=== PATIENT | female | born 1965 | race Caucasian/White ===

== ENCOUNTER 2018-06-25 19:16 | Emergency (ER) | payer OTHER ==
[~2018-06-25] VITALS: Ht 157.5 cm; Wt 86.2 kg
[2018-06-25] MEDS ORDERED: BLOOD PRESSURE MED (19:31)
[2018-06-25] MEDS ORDERED: ONDANSETRON HCL4 M2 PO (21:01)
[2018-06-25] MEDS ORDERED: FLEXERIL PO (21:01)
[2018-06-25] MEDS ORDERED: LIDODERM1 EACH TRANSDERM (21:01)
[2018-06-25 21:32] VITALS: BP 124/66
== END 2018-06-25 21:36 | disposition home or self-care (01) ==
LOC: M.ERS 19:16
DX: M54.16 Radiculopathy, lumbar region (principal); I10 Essential (primary) hypertension

== ENCOUNTER 2019-02-23 10:26 | Emergency (ER) | payer OTHER ==
[~2019-02-23] VITALS: Ht 157.5 cm; Wt 73.5 kg
[~2019-02-23 10:26] MED LIST: BLOOD PRESSURE MED; FLEXERIL PO; LIDODERM1 EACH TRANSDERM; ONDANSETRON HCL4 M2 PO
[2019-02-23] MEDS ORDERED: PRILOSEC 10MG C10 MG PO (10:49)
[2019-02-23 12:07] LABS: ABSOLUTE BASOPHILS 0.1 thou/uL (0.0-0.2); ABSOLUTE MONOCYTES 0.5 thou/uL (0.0-1.2); ABSOLUTE NEUTROPHILS 2.9 thou/uL (1.6-8.1); EOSINOPHILS 0.7 %; HEMATOCRIT 43.9 % (37.0-47.0); LYMPHOCYTES 36.7 %; MCH 32.4 pg (26.0-34.0); MCHC 34.1 g/dL (28.0-37.0); MCV 95.2 fL (80.0-100.0); MONOCYTES 9.2 %; MPV 8.4 fl. (7.2-11.1); NUCLEATED RBCS 0 /100WBC; PLATELET COUNT* 203 thou/uL (150-400); POLYS 52.4 %; RBC 4.61 mil/uL (4.20-5.00); RDW-CV 13.1 % (10.5-14.5); WBC 5.5 thou/uL (4.0-11.0)
[2019-02-23 12:23] LABS: ALBUMIN 3.6 g/dL (3.4-5.0); CALCIUM 10.3 mg/dL (8.5-10.1); CREATININE 0.7 mg/dL (0.6-1.3); TOTAL BILIRUBIN 0.2 mg/dL (<0.1-1.0); TOTAL PROTEIN 6.7 g/dL (6.4-8.2)
[2019-02-23 12:27] LABS: URINE BILIRUBIN NEGATIVE (Negative); URINE BLOOD 1+ (Negative); URINE CLARITY CLEAR; URINE COLOR YELLOW; URINE GLUCOSE-RANDOM NEGATIVE (Negative); URINE KETONES NEGATIVE (Negative); URINE LEUKOCYTES-REFLEX NEGATIVE (Negative); URINE NITRITE-REFLEX NEGATIVE (Negative); URINE PROTEIN NEGATIVE (Negative); URINE UROBILINOGEN 0.2 E.U./dl (0.2-1.0)
[2019-02-23 12:42] LABS: SQUAMOUS 0-3 Few /LPF (0-3)
[2019-02-23 12:43] LABS: CASTS None Seen /LPF (None Seen); CRYSTALS None Seen /LPF (None Seen); MUCUS >6 Heavy strn/LPF (None Seen); URINE RBC 0-2 Rare /HPF (0-2); URINE WBC-REFLEX 0-5 Rare /HPF (0-5)
[2019-02-23] MEDS ORDERED: ZOFRAN ODT4 MG PO (13:37)
[2019-02-23] MEDS ORDERED: NORCO 5-325 TA1 EACH PO (13:37)
[2019-02-23 13:57] VITALS: BP 145/83
== END 2019-02-23 13:57 | disposition home or self-care (01) ==
LOC: M.ERS 10:26
PROVIDERS: Personal Emergency Response Attendant
DX: K80.20 Calculus of gallbladder without cholecystitis without obstruction (principal); I10 Essential (primary) hypertension; Z91.048 Other nonmedicinal substance allergy status

== ENCOUNTER 2021-01-16 20:45 | Emergency (ER) | payer OTHER ==
[~2021-01-16] VITALS: Ht 157.5 cm; Wt 77.1 kg
[~2021-01-16 20:45] MED LIST changes: +NORCO 5-325 TA1 EACH PO; +PRILOSEC 10MG C10 MG PO; +ZOFRAN ODT4 MG PO
[2021-01-16] MEDS ORDERED: TOPROL XL100 MG PO (21:19)
[2021-01-16] MEDS ORDERED: NORVASC 2.5 MG2.5 M1 (21:20)
[2021-01-16 21:37] LABS: ABSOLUTE BASOPHILS 0.1 thou/uL (0.0-0.2); ABSOLUTE EOSINOPHILS 0.1 thou/uL (0.0-0.7); ABSOLUTE LYMPHOCYTES 3.6 thou/uL (0.8-5.3); ABSOLUTE MONOCYTES 0.9 thou/uL (0.0-1.2); ABSOLUTE NEUTROPHILS 3.3 thou/uL (1.6-8.1); BASOPHILS 0.7 %; EOSINOPHILS 1.3 %; HEMATOCRIT 45.3 % (37.0-47.0); HEMOGLOBIN 15.3 gm/dL (12.0-15.0); MCH 31.5 pg (26.0-34.0); MCHC 33.7 g/dL (28.0-37.0); MCV 93.7 fL (80.0-100.0); MONOCYTES 11.4 %; MPV 8.2 fl. (7.2-11.1); NUCLEATED RBCS 0 /100WBC; PLATELET COUNT* 201 thou/uL (150-400); POLYS 41.6 %; RBC 4.84 mil/uL (4.20-5.00); RDW-CV 12.5 % (10.5-14.5)
[2021-01-16 21:51] LABS: CALCIUM 10.4 mg/dL (8.5-10.1); CREATININE 0.7 mg/dL (0.6-1.3); POTASSIUM 4.1 mmol/L (3.5-5.1)
[2021-01-16 21:56] LABS: ALBUMIN 3.9 g/dL (3.4-5.0); TOTAL BILIRUBIN 0.3 mg/dL (<0.1-1.0); TOTAL PROTEIN 6.7 g/dL (6.4-8.2)
[2021-01-17 00:31] VITALS: BP 121/76
--- NOTE | 2021-01-17 11:13 | EKG ---
[place] [address] ELECTROCARDIOGRAM REPORT Name: MARY RIVERA Room: [facility]#: [id number] Admission: 01/16/21 Attend Phys: Discharge: 01/17/21 Date of : 69 Date of Service: 01/16/212116 Report #: [id number] THIS REPORT FOR: //name// [facility] ED Test Date: 2021-01-16 Test Time: 21:17:34 Pat Name: MARY RIVERA Department: Room: Gender: F Vehicle Safety Inspector: [facility] : 1965 Requested By: Oneida George Order Number: [id number] MD: Chang Molina Measurements Intervals [place] Rate: 69 P: 56 AR: 145 QRS: 18 QRSD: 101 T: 31 QT: 374 QTc: 401 Interpretive Statements Sinus rhythm Nonspecific T abnormalities, anterior leads No previous ECG available for comparison Electronically Signed On 01-17-2021 11:12:52 NUTRITION INSTRUCTOR by Chang Molina [email or web address] <ELECTRONICALLY SIGNED> By: Chang Molina MD, [facility] 01/17/21 1112 16 16 Chang Molina MD, [facility] /EPI
== END 2021-01-17 00:32 | disposition home or self-care (01) ==
LOC: M.ERS 20:45
PROVIDERS: Nurse Practitioner Family
DX: R07.89 Other chest pain (principal); I10 Essential (primary) hypertension